=== PATIENT | female | born 1955 | race Caucasian/White ===

== ENCOUNTER 2021-12-31 06:48 | Emergency (ER) | payer OTHER ==
[~2021-12-31] VITALS: Ht 157.5 cm; Wt 63.5 kg
[~2021-12-31 06:48] MED LIST: ALORA1 EAC1 TD; ARMOUR THYROID180 MG PO; ESTRACE1 MG PO; PROGESTERONE200 MG PO; RANITIDINE HCL150 MG PO; VITAMIN B-122000 MC1 PO
[2021-12-31] MEDS ORDERED: LIDODERM1 EACH TOP (08:07)
[2021-12-31] MEDS ORDERED: CYCLOBENZAPRINE10 MG PO (08:07)
== END 2021-12-31 08:17 | disposition home or self-care (01) ==
LOC: ED 06:48
DX: M54.42 Lumbago with sciatica, left side (principal); F17.200 Nicotine dependence, unspecified, uncomplicated; Z88.2 Allergy status to sulfonamides; Z88.8 Allergy status to other drugs, medicaments and biological substances; Z91.040 Latex allergy status
CPT/HCPCS: A9270; J1885

== ENCOUNTER 2023-07-31 05:45 | Day surgery (SDC) | payer OTHER ==
[2023-07-28 09:13] VITALS: BP 133/67
[~2023-07-31] VITALS: Ht 157.5 cm; Wt 54.5 kg
[~2023-07-31 05:45] MED LIST changes: +CYCLOBENZAPRINE10 MG PO; +FLUOXETINE HCL20 M1 PO; +LACTATED RINGER'S 1,000 ML IV SCH; +LIDODERM1 EACH TOP
[2023-07-31 05:58] VITALS: BP 127/48
[2023-07-31] MEDS ORDERED: TYLENOL EXTRA500 MG PO (06:03)
[2023-07-31] MEDS ORDERED: IBLOOD GLUCOSE TEST STRIP 1 EA TEST VI PRN ×2 (07:00→07:30)
[2023-07-31] MEDS ORDERED: CEFAZOLIN SODIUM 2 GM/20 ML SYR IV SCH (07:00)
[2023-07-31] MEDS ORDERED: LIDOCAINE HCL 1% 5 ML SDV INJ ONE (07:00)
[2023-07-31] MEDS ORDERED: KETOROLAC TROMETHAMINE 30 MG/ML VIAL ONE (07:22)
[2023-07-31] MEDS ORDERED: ACETAMINOPHEN 1,000 MG/100 ML VIAL ONE (07:22)
[2023-07-31] MEDS ORDERED: propofoL 200 MG/20 ML VIAL ONE (07:22)
[2023-07-31] MEDS ORDERED: LIDOCAINE HCL 2% 5 ML SDV ONE (07:22)
[2023-07-31] MEDS ORDERED: ondansetron HCL 4 MG/2 ML VIAL ONE (07:22)
[2023-07-31] MEDS ORDERED: NALOXONE HCL 0.4 MG SYR IV PRN (07:30)
[2023-07-31] MEDS ORDERED: HYDROmorphone HCL 1 MG/ML SYR IV PRN (07:30)
[2023-07-31] MEDS ORDERED: ondansetron HCL 4 MG/2 ML VIAL IV PRN (07:30)
[2023-07-31] MEDS ORDERED: PROCHLORPERAZINE EDISYLATE 10 MG/2 ML VIAL IV PRN (07:30)
[2023-07-31] MEDS ORDERED: droPERidol 5 MG/2 ML VIAL IV PRN (07:30)
[2023-07-31] MEDS ORDERED: fentaNYL citrate 100 MCG/2 ML VIAL IV PRN (07:30)
--- NOTE | 2023-07-31 07:47 | NUR ---
ROUNDS. PT IN OVERALL GOOD SPIRITS; EXPRESSED CONFIDENCE IN CARE. FACILITATED STORY-TELLING; NORMALIZED EXPERIENCE; PROVIDED SILENT PRAYER.
[2023-07-31] MEDS ORDERED: DEXAMETHASONE SOD PHOS 4 MG/ML VIAL ONE (08:31)
--- NOTE | 2023-07-31 09:07 | NUR ---
07/31/23 0907 Sindhu Stephens 0894- PT PRESENTS TO PACU SEMI ROSS POSITION, AWAKE BUT DROWSY. O2 AT 6L PER MASK, LR INFUSING TO RFA. DRESSINGS TO BACK IN PLACE, CDI. PT DENIES PAIN AND NAUSEA. REQUESTING COFFEE. ABD SOFT, NON DISTENDED. ALL MONITORS IN PLACE. 0856- PT SAT UP IN BED, DENIES NAUSEA OR DIZZINESS. COFFEE PROVIDED TO PT, MOVED TO ROOM AIR. WILL CONTINUE TO MONITOR.
[2023-07-31] MEDS ORDERED: MOTRIN IB200 MG PO (09:13)
[2023-07-31] MEDS ORDERED: HYDROMORPHO1 MG/1 M9 IV (09:13)
[2023-07-31] MEDS ORDERED: LACTATED RINGER'S 1,000 ML IV SCH (09:15)
[2023-07-31] MEDS ORDERED: ACETAMINOPHEN 500 MG TAB PO PRN (09:15)
[2023-07-31] MEDS ORDERED: HYDROCODONE/ACETA 5/325 TAB PO PRN (09:15)
[2023-07-31] MEDS ORDERED: IBUPROFEN 600 MG TAB PO PRN (09:15)
[2023-07-31] MEDS ORDERED: ACETAMINOPHEN500 MG PO (09:19)
[2023-07-31] MEDS ORDERED: IBUPROFEN600 MG PO (09:19)
[2023-07-31] MEDS ORDERED: HYDROCODON-ACE1 EA10 PO (09:19)
[2023-07-31 09:39] VITALS: BP 115/73
--- NOTE | 2023-07-31 18:59 | OR ---
[facility] [address] [place], [place] [address] Signed DATE OF OPERATION: 07/31/2023 SURGEON: Lobito Dykes MD PREOPERATIVE DIAGNOSES: 1. 5 cm soft tissue mass, right superior posterior thorax. 2. Excoriated skin lesion, mid posterior thorax. POSTOPERATIVE DIAGNOSES: 1. Subfascial 5 cm lipomatous mass, right superior posterior thorax. 2. Skin lesion associated with probable desquamated seborrheic keratosis, mid posterior thorax. PROCEDURES: 1. Excision of right posterior superior thorax 5 cm, subfascial soft tissue mass. 2. Excision of skin lesion mid posterior thorax 4.2 cm excision size. ANESTHESIA: Local with monitored anesthesia care, Poli Valdivia CRNA, and local anesthetic 0.25% Marcaine with epinephrine 10 mL. INDICATION: This 68-year-old white woman is a patient of Ruben Hansen. She is found to have a soft tissue mass of the right posterior thorax, which has become increasingly uncomfortable for her. The lesion is most consistent with a lipoma rather than epidermal inclusion cyst or other similar lesion. Incidentally noted in the mid posterior thorax was excoriated lesion highly suspicious for malignancy at 1st glance. She does have seborrheic keratoses of the torso and this may represent a desquamated lesion, but it is excoriated and of uncertain malignant potential. She is admitted at this time to undergo excision of both lesions. She understands the risk of bleeding, infection, cosmetic deformity, need for other indicated procedures and so on. FINDINGS: Right posterior superior thorax soft tissue mass was indeed a subfascial lipoma. It was well circumscribed and extended down to the posterior thorax fascia. Complete excision was undertaken without problem. Closure was with a layer technique. The mid posterior thorax excoriated skin lesion upon close inspection may represent a Electronically Signed By: LOBITO DYKES MD 07/31/23 1859 PATIENT NAME: HEMANTH BLACKWELL OPERATIVE REPORT DATE OF : 55 REPORT #: [id number] PHYSICIAN: LOBITO DYKES MD PCP: RUBEN HANSEN MD REPORT IS CONFIDENTIAL AND NOT TO BE RELEASED WITHOUT AUTHORIZATION [facility] [address] [place], [place] [address] Signed desquamated seborrheic keratosis base of lesion, though malignancy potential remains based on its appearance. It was completely excised with a clinically negative margin with full-thickness excision. DESCRIPTION OF PROCEDURE: The patient was brought to the operating room, placed in the lateral decubitus position right side up. She was given intravenous sedation with full cardiopulmonary monitoring. The posterior thorax was prepared with a chlorhexidine solution and draped sterilely. The soft tissue mass on the right superior posterior thorax was well identified. The line of skin tension was demarcated and a field block of 0.25% Marcaine with epinephrine was undertaken. Similarly, the mid posterior thorax skin lesion, had a slick whitish shiny base with some excoriation and may represent desquamation of a seborrheic keratosis as she did have other seborrheic keratosis type lesions of the posterior thorax. A field block was undertaken of this area as well with same anesthetic. A transverse incision was made over the surface of the superior posterior thorax soft tissue mass. Dissection was carried through the dermis with sharp and electrocautery dissection. Using electrocautery and blunt dissection, the lesion was identified as a probable lipoma and was freed from the subcutaneous space and extended down to the posterior thoracic fascia. It was completely excised. 5 mL of 0.25% Marcaine with epinephrine was injected locally in the base of the wound. The wound was then closed with interrupted 2-0 Vicryl in deep layer and a running subcuticular 3-0 Vicryl for the skin. Attention was turned to the skin lesion. An elliptical incision was made in a vertical configuration, excising a clinically negative margin throughout. The excision size was measured at 4.2 cm. Flaps were elevated medially and laterally to allow for tension-free reapproximation. The deep layer was reapproximated with interrupted 2-0 Vicryl and skin closed with running subcuticular 3-0 Vicryl. Steri-Strips were applied to both sites as were Acticoat dressings. The patient was ultimately allowed to emerge from sedation and taken to the recovery room in good condition having suffered no complication. Sponge, needle, and instrument counts were reported as correct x3. MD ABEL Carrillo/MODL /[id number] Electronically Signed By: LOBITO DYKES MD 07/31/23 1859 PATIENT NAME: HEMANTH BLACKWELL OPERATIVE REPORT DATE OF : 55 REPORT #: [id number] PHYSICIAN: LOBITO DYKES MD PCP: RUBEN HANSEN MD REPORT IS CONFIDENTIAL AND NOT TO BE RELEASED WITHOUT AUTHORIZATION [address] [place] [address] Signed cc: Ruben Hansen MD Copies: RUBEN HANSEN MD ~ Electronically Signed By: LOBITO DYKES MD 07/31/23 1859 PATIENT NAME: HEMANTH BLACKWELL OPERATIVE REPORT DATE OF : 55 REPORT #: [id number] PHYSICIAN: LOBITO DYKES MD PCP: RUBEN HANSEN MD REPORT IS CONFIDENTIAL AND NOT TO BE RELEASED WITHOUT AUTHORIZATION
== END 2023-07-31 09:32 | disposition home or self-care (01) ==
LOC: DS 05:45
PROVIDERS: ATTEND Surgery
PROC: 0JB60ZZ Excision of Chest Subcutaneous Tissue and Fascia, Open Approach (ICD-10-PCS; principal; 2023-07-31 07:30)
DX: D17.1 Benign lipomatous neoplasm of skin and subcutaneous tissue of trunk (principal); L98.9 Disorder of the skin and subcutaneous tissue, unspecified; F17.210 Nicotine dependence, cigarettes, uncomplicated; Z88.2 Allergy status to sulfonamides; Z91.040 Latex allergy status
CPT/HCPCS: J0131; J0690; J1100; J1885; J2001; J2405; J2704; J7121